=== PATIENT | male | born 1955 | race Caucasian/White ===

== ENCOUNTER → 2021-12-12 10:16 | Outpatient (CLI) | payer MEDICARE, BC, SELFPAY ==
--- NOTE | 2021-12-12 10:23 | DI.ECHO.S_ITS ---
[facility] +---------+ : : [address] : : [place] : : : : [id number] : : : : Phone: [phone]---------+ Echocardiogram Report + + :Name: CONTRERAS CALLAHAN Study Date: 12/12/2021 Height: 76 in : :[facility] ReadingLocation: Weight: 180 lb : : Gender: Male BSA: 2.1 m2 : :: 1955 Age: 66 yrs BP: 161/97 mmHg: :Reason For Study: Hypertension : :Ordering Physician: NAVIN, : :IVELISSE Hooper Performed By: Lucien Mccoy : :Referring: IVELISSE HOLDEN : + + Interpretation Summary Normal sinus rhythm. Uncontrolled blood pressure (161/97 mm Hg). Normal LV size and wall thickness. Normal wall motion and LV systolic function. EF is 55-60%. Stage I diastolic dysfunction. Normal chamber sizes. No significant valvular abnormalities. No prior study available for comparison. Procedure: A two-dimensional transthoracic echocardiogram with color flow and Doppler was performed. The study quality was technically adequate. There is no prior echocardiogram noted for this patient. The patient was in normal sinus rhythm during the exam. Left Ventricle: The left ventricle is normal in size and wall thickness. Left ventricular systolic function is normal. The ejection fraction is estimated to be 55-60%. There are no focal wall motion abnormalities. Diastolic parameters suggest probable normal left ventricular diastolic function and normal filling pressures. Right Ventricle: The right ventricle is normal in size and function. Atria: Both atria are normal in size. The interatrial septum grossly appears intact with no obvious evidence for an atrial septal defect. Mitral Valve: The mitral valve is normal in structure and function. There is trace mitral regurgitation. Aortic Valve: The aortic valve is normal in structure and function. No aortic regurgitation is present. Tricuspid Valve: The tricuspid valve is normal in structure and function. There is mild tricuspid regurgitation. The right ventricular systolic pressure is estimated to be at least 24 mmHg based on an estimated right atrial pressure of 3 mm Hg. Pulmonic Valve: The pulmonic valve is not well seen, but is grossly normal. There is trace pulmonic regurgitation. Great Vessels: The aortic root is normal size. The dimensions of the ascending aorta are normal. The IVC is of normal diameter and collapses greater than 50% with a sniff. This suggests a low right atrial pressure of 3 mm Hg. Pericardium/ Pleura There is no pericardial effusion. There is no pleural effusion. MMode/2D Measurements & Calculations LVIDd: 5.0 cm LVOT diam: 2.2 cm LVIDs: 3.3 cm Ao root diam: 3.5 cm FS: 34.0 % asc Aorta Diam: 3.2 cm IVSd: 1.0 cm LVPWd: 1.0 cm LV mao. diameter/BSA (cm/m^2): 2.4 LV sys. diameter/BSA (cm/m^2): 1.6 LA dimension: 3.3 cm RA long axis: 4.9 cm LA A2 area: 10.6 cm2 LA A4 area: 14.5 cm2 LA length (vol): 3.7 cm LA vol: 35.1 ml LA vol index: 16.6 ml/m2 TAPSE_phl: 2.6 cm Doppler Measurements & Calculations Ao V2 max: 93.3 cm/sec LVOT Max Justice: 75.1 cm/sec Ao V2 mean: 72.5 cm/sec LV V1 max P.3 mmHg Ao max P.0 mmHg LV V1 VTI: 16.4 cm Ao mean P.0 mmHg AMANDA(I,D): 3.2 cm2 Ao V2 VTI: 19.3 cm AMANDA(V,D): 3.1 cm2 sev ratio: 0.85 AMANDA indexed to BSA (cm^2/m^2): 1.5 MV E max justice: 52.3 cm/sec TR max justice: 229.0 cm/sec MV A max justice: 60.0 cm/sec TR max P.0 mmHg MV E/A: 0.87 Med Peak E' Justice: 6.1 cm/sec E/E' med: 8.6 Lat Peak E' Justice: 9.9 cm/sec E/E' lat: 5.3 E/e' average: 6.9 MV dec time: 0.31 sec SV(LVOT): 62.3 ml AV VR_phl: 0.80 AMANDA(VTI)/BSA_phl: 1.5 MV P1/2t-pr_phl: 90.0 msec Electronically signed by: Marlena Llanos M.D. on [place] Physician:12/12/2021 08:02 PM
== END ==
PROVIDERS: PCP Family Medicine; Referring Provider Family Medicine; Visit Provider Family Medicine
DX: I07.1 Rheumatic tricuspid insufficiency (principal); I10 Essential (primary) hypertension; R60.9 Edema, unspecified
CPT/HCPCS: 93306